=== PATIENT | female | born 1990 | race African-American/Black ===

== ENCOUNTER 2022-07-23 21:31 | Emergency (ER) | payer MEDICAID, OTHER ==
[~2022-07-23] VITALS: Ht 165.1 cm; Wt 130.0 kg
[2022-07-24 00:24] LABS: Basophils # (auto) 0 10 ^3/uL (0-0.2); Basophils % (auto) 0.6 % (0.0-2.0); Eosinophils # (auto) 0.1 10 ^3/uL (0-0.8); Eosinophils % (auto) 1.6 % (0.0-7.0); Hematocrit 36.7 % (36.0-46.0); Hemoglobin 12.5 g/dL (12.2-16.2); Lymphocytes # (auto) 2.2 10 ^3/uL (0.4-5.4); Lymphocytes % (auto) 26.4 % (10.0-50.0); Mean Corpuscular Hemoglobin 30.9 pg (28.0-32.0); Mean Corpuscular Volume 90.9 fL (80.0-100.0); Monocytes # (auto) 0.6 10 ^3/uL (0-1.3); Monocytes % (auto) 7.7 % (0.0-12.0); Neutrophils # (auto) 5.4 10 ^3/uL (1.6-8.6); Neutrophils % (auto) 63.7 % (37.0-80.0); Nucleated Red Blood Cells % 0.2 %; Red Blood Cells 4.04 10^6/uL (4.0-5.20); Red Cell Distribution Width 12.9 % (11.8-14.3); White Blood Cell 8.4 10^3/uL (4.4-10.8)
[2022-07-24 00:38] LABS: Albumin 3.5 g/dL (3.4-5.0); BUN/Creatinine Ratio 12.1; Calcium 8.9 mg/dL (8.5-10.1); Potassium 3.6 mmol/L (3.5-5.1)
[2022-07-24 00:41] LABS: Bilirubin, Total 0.2 mg/dL (0.2-1.0); Total Protein 7.2 g/dL (6.4-8.2)
[2022-07-24] MEDS ORDERED: MORPHINE SULFATE 4 MG/ML SYR/VIAL IV ONE (01:00)
[2022-07-24] MEDS ORDERED: ONDANSETRON HCL 4 MG/2 ML VIAL IV ONE (01:00)
[2022-07-24] MEDS ORDERED: ONDANSETRON ODT 4 MG TAB PO ONE (02:15)
[2022-07-24] MEDS ORDERED: KETOROLAC TROMETH 30 MG/ML 1ML VIAL IM ONE (02:15)
[2022-07-24] MEDS ORDERED: HYDROcodone-ACET 5/325MG TAB PO ONE (02:15)
[2022-07-24 06:55] VITALS: BP 102/67
== END 2022-07-24 10:08 | disposition home or self-care (01) ==
LOC: EDBD 21:31 → ER 21:31
DX: G43.909 Migraine, unspecified, not intractable, without status migrainosus (principal); G31.9 Degenerative disease of nervous system, unspecified; G80.9 Cerebral palsy, unspecified
CPT/HCPCS: 36415; 70450; 80053; 84484; 85025; 96372; 99285; J1885; Q0162

== ENCOUNTER 2024-02-23 19:50 | Emergency (ER) | payer MEDICAID ==
[~2024-02-23] VITALS: Ht 154.9 cm; Wt 63.0 kg
[2024-02-23 19:50] VITALS: BP 135/85; PULSE 92; RESP 24; O2SAT 100
[~2024-02-23 19:50] MED LIST: ACET-1079 PO; AUG875T PO; BENZ1LOZ3 MT; PRED20TA2 PO
[2024-02-23] MEDS ORDERED: LORazepam 0.5 MG TAB PO ONE (20:00)
[2024-02-23 20:27] LABS: Basophils # (auto) 0 10 ^3/uL (0-0.2); Basophils % (auto) 0.6 % (0.0-2.0); Eosinophils # (auto) 0.1 10 ^3/uL (0-0.8); Eosinophils % (auto) 1.2 % (0.0-7.0); Hematocrit 40.3 % (36.0-46.0); Hemoglobin 13.4 g/dL (12.2-16.2); Lymphocytes # (auto) 2.7 10 ^3/uL (0.4-5.4); Lymphocytes % (auto) 39.6 % (10.0-50.0); Mean Corpuscular Hemoglobin 29.3 pg (28.0-32.0); Mean Corpuscular Hgb Conc. 33.1 g/dL (32.0-36.0); Mean Corpuscular Volume 88.6 fL (80.0-100.0); Monocytes # (auto) 0.4 10 ^3/uL (0-1.3); Monocytes % (auto) 6.4 % (0.0-12.0); Neutrophils # (auto) 3.6 10 ^3/uL (1.6-8.6); Neutrophils % (auto) 52.2 % (37.0-80.0); Nucleated Red Blood Cells % 0.1 %; Platelet Count (auto) 276 10^3/uL (140-450); Red Blood Cells 4.56 10^6/uL (4.0-5.20); White Blood Cell 6.8 10^3/uL (4.4-10.8)
[2024-02-23 20:43] LABS: Acetaminophen < 2.0 UG/ML (10.0-20.0)
[2024-02-23 20:44] LABS: Salicylate < 3.0 mg/dL (-30)
[2024-02-23 20:51] LABS: Chloride 109 mmol/L (98-107); Potassium 3.8 mmol/L (3.5-5.1); Sodium 142 mmol/L (136-145)
[2024-02-23 20:52] LABS: Anion Gap 9 (5-15); Carbon Dioxide 24 mmol/L (20-31)
[2024-02-23 20:57] LABS: BUN/Creatinine Ratio 12.8 (10.0-20.0); Blood Urea Nitrogen 10 mg/dL (9-23); Glucose 84 mg/dL (74-106)
[2024-02-23 20:58] LABS: Blood Alcohol 3.2 mg/dL (<10)
== END 2024-02-23 20:55 | disposition left against medical advice (07) ==
LOC: EDUNIT# 19:50 → EDBD 19:50 → ER 19:50
DX: R51.9 Headache, unspecified (principal); R10.2 Pelvic and perineal pain; M54.9 Dorsalgia, unspecified; R41.0 Disorientation, unspecified
CPT/HCPCS: 36415; 80048; 80320; 80329; 84702; 85025